=== PATIENT | male | born 1970 | race Caucasian/White ===

== ENCOUNTER 2019-02-25 03:03 | Emergency (ER) ==
[2019-02-25] MEDS ORDERED: Proparacaine 0.5% Opth 15 ML BOT ONE (04:55)
[2019-02-25] MEDS ORDERED: Fluorescein Opthalmic Strip ONE (04:56)
== END 2019-02-25 05:14 | disposition home or self-care (01) ==
LOC: ERS 03:03
DX: T15.02XA Foreign body in cornea, left eye, initial encounter (principal)
CPT/HCPCS: 99283

== ENCOUNTER 2019-03-09 14:27 | Outpatient (CLI) | payer OTHER ==
--- NOTE | 2019-03-09 15:31 | ULT ---
BILATERAL LOWER EXTREMITY VENOUS DUPLEX EXAM: 03/09/19 HISTORY: Bilateral leg edema. Real time color Doppler evaluation of the right and left lower extremities was performed from groin t o calf. This includes evaluation of the common femoral, superficial and profunda femoral, saphenous, popliteal, and posterior tibial veins and shows patent deep venous systems bilaterally. There is norm al compressibility and augmentation. There is evidence of DVT. IMPRESSION: No evidence of DVT of either lower extremity. POS: OFF
== END 2019-03-09 14:28 | disposition home or self-care (01) ==
LOC: BICULT 14:27
PROVIDERS: ATTEND Physician Assistant
DX: R60.0 Localized edema (principal); M79.661 Pain in right lower leg; M79.662 Pain in left lower leg
CPT/HCPCS: 93970